=== PATIENT | female | born 1985 | race Caucasian/White ===

== ENCOUNTER 2020-04-11 21:33 | Emergency (ER) | payer OTHER ==
[~2020-04-11 21:33] MED LIST: CYCLOBENZAPRINE5 MG PO; IBUPROFEN600 MG PO; PERCOCET 5-3251 EACH PO
== END 2020-04-11 21:44 | disposition left against medical advice (07) ==
LOC: ER1 21:33
DX: Z53.21 Procedure and treatment not carried out due to patient leaving prior to being seen by health care provider (principal)

== ENCOUNTER 2020-10-01 07:06 | Emergency (ER) | payer OTHER | END 2020-10-01 08:35 | disposition home or self-care (01) | LOC: ER1 07:06 | DX: S90.111A Contusion of right great toe without damage to nail, initial encounter (principal); Z88.0 Allergy status to penicillin; W20.8XXA Other cause of strike by thrown, projected or falling object, initial encounter; Y92.009 Unspecified place in unspecified non-institutional (private) residence as the place of occurrence of the external cause | CPT/HCPCS: 73630; 99283 ==